=== PATIENT | male | born 1975 | race African-American/Black ===

== ENCOUNTER 2017-02-12 23:09 | Inpatient (IN) | payer OTHER ==
--- NOTE | ~2017-02-12 | PN ---
Unit #: [id number] #: [id number] Patient: FAROOQ PEGUERO [id number] [facility] [address] [place] [address] [id number] I MR#: [id number] NAME: FAROOQ PEGUERO. ROOM: P259 Age: 41 Sex: M Admission Date: 02/12/2017 : 1975 Attending Physician: Arley Rivera M.D. Admitting Physician: Arley Rivera M.D. Primary Care Physician: Generic Doctor Not In System [facility] PROGRESS NOTES DATE OF SERVICE: 02/15/2017 DISCUSSION Mr. Peguero complains of hunger with his ongoing detox pain. He also concerned about his blood pressure, although review of his recent blood pressures indicated that this is improving as well. He is somewhat entitled and staff reports he can be demanding at times. He is alert and fully oriented with no evidence of psychosis and suicidality. ASSESSMENT Opioid dependence. PLAN We are going to provide larger portion entrees and continue with the detox protocol. Anticipate discharge in the near future. Dictated by... Arley Rivera M.D. ROBERT/migdalia TD: 02/16/2017 03:31 JOB #: [id number] [facility] PROGRESS NOTES Page 1 of 1 X Arley Rivera MD PROGRESS NOTE
--- NOTE | ~2017-02-12 | DS ---
Unit #: [id number] #: [id number] Patient: FAROOQ PEGUERO [id number] [facility] [address] [place] [address] [id number] I MR#: [id number] NAME: FAROOQ PEGUERO. ROOM: P259 Age: 41 Sex: M Admission Date: 02/12/2017 : 1975 Discharge Date: 02/17/2017 Attending Physician: Arley Rivera M.D. Primary Care Physician: Generic Doctor Not In System DISCHARGE SUMMARY REASON FOR ADMISSION Farooq is a 41-year-old man, who has been using 20 to 30 dollars of heroin daily in nasal inhalation route. He had vague suicidal ideation and was admitted for stabilization. DIAGNOSTIC STUDIES LABORATORY RESULTS: Please see hospital chart. HOSPITAL COURSE The patient was admitted and placed on suicide precautions and the opioid detox protocol. He had several dermatological issues and this was addressed by our nurse practitioner. He had ongoing irritability and at one point requested discharge against medical advice, which he declined later on to accept. He participated in unit groups and activities and on the date of discharge, he was able to contract for safety in the outpatient setting. DISCHARGE DIAGNOSES AXIS I: Opioid dependence withdrawal, uncomplicated, F11.23. AXIS II: No diagnosis. AXIS III: Nasal infection. AXIS IV: AXIS V: DISCHARGE INSTRUCTIONS Follow up with [facility] and with primary care physician. DISCHARGE MEDICATIONS Cleocin 300 mg t.i.d. for 7 days for infection. CONDITION AT DISCHARGE Improved. PROGNOSIS Fair to good. DIET AND ACTIVITY Per primary care doctor. Dictated by... Arley Rivera M.D. Unit #: [id number] #: [id number] Patient: FAROOQ PEGUERO MR/modl TD: 02/24/2017 01:29 JOB #: [id number] DISCHARGE SUMMARY Page 1 of 1 X Arley Rivera MD X DISCHARGE SUMMARY
--- NOTE | ~2017-02-12 | PA ---
Unit #: [id number] #: [id number] Patient: FAROOQ PEGUERO [id number] [facility] [address] [place] [address] [id number] I MR#: [id number] NAME: FAROOQ PEGUERO. ROOM[facility] Age: 41 Sex: M Admission Date: 02/12/2017 : 1975 Date of Assessment: 02/13/2017 Attending Physician: Arley Rivera M.D. Admitting Physician: Arley Rivera M.D. Primary Care Physician: Generic Doctor Not In System PSYCHIATRIC ASSESSMENT DATE OF SERVICE 02/13/2017. INFORMANTS The patient, reliable and OLOP, reliable. CHIEF COMPLAINT Opioid dependence. HISTORY OF PRESENT ILLNESS Farooq Peguero is a 41-year-old man, who reports he has been using 20 to 30 dollars of heroin daily by the nasal inhalation route with occasional use of alprazolam. He had vague suicidal ideation with a plan to overdose on heroin and was admitted for inpatient detox. PAST PSYCHIATRIC HISTORY The patient denies any previous hospitalizations at this facility, but has been at [facility], [facility], and [facility] in the past. He does not take any psychiatric medications. FAMILY PSYCHIATRIC HISTORY There is a family history of depression. SOCIAL HISTORY The patient is homeless and is currently working at the [facility] [employer]. He is a high-school graduate with minimal psychosocial support at this time. PAST MEDICAL HISTORY The patient reports several dermatological sensitivities, for which he is receiving treatment for. MEDICATIONS Please see MAR. ALLERGIES The patient has no drug allergies. SUBSTANCE USE HISTORY As noted, the patient has a history of abusing heroin. MENTAL STATUS EXAMINATION The patient presented as a neatly dressed and groomed man, who appeared Unit #: [id number] #: [id number] Patient: FAROOQ PEGUERO his stated age. Vital signs were temperature 98.3, blood pressure 101/56, respirations 18, and pulse 82. His speech was spontaneous and clearly understood. Musculoskeletal examination was calm. His mood was mildly anxious with a congruent affect. He was alert and fully oriented. His memory and concentration were fair to good. His thought processes were goal directed with no active psychosis. He denied active suicidal ideation at the time of my assessment. Insight and judgment, fair. Fund of knowledge and abstraction, fair. ASSETS AND LIABILITIES The patient presents voluntarily and knows local resources. He currently is connected with [employer] [place] [employer]. Liabilities include ongoing heroin use. ADMITTING DIAGNOSES AXIS I: Opioid dependence with withdrawal, uncomplicated, F11.23. AXIS II: Some antisocial traits noted. AXIS III: Opioid withdrawal syndrome and dermatological sensitivities. AXIS IV: AXIS V: PSYCHIATRIC PLAN The patient was admitted and placed on suicide precautions and the opioid detox protocol. Nurse practitioner will be asked to address his dermatological issues and requests and we will initiate the detox protocol. TREATMENT GOALS Establishment of sobriety, improvement in insight, and improvement in coping skills. DISCHARGE PLANNING Follow up with [facility]. ESTIMATED LENGTH OF STAY 5 days. Dictated by... Arley Rivera M.D. ROBERT/migdalia TD: 02/13/2017 19:27 JOB #: [id number] PSYCHIATRIC ASSESSMENT X Arley Rivera MD X PSYCHIATRIC ASSESSMENT
--- NOTE | ~2017-02-12 | HP ---
Unit #: [id number] #: [id number] Patient: FAROOQ PEGUERO [id number] [place] [address] [id number] MR#: [id number] NAME: FAROOQ PEGUERO. ROOM: P261 Age: 41 Sex: M Admission Date: 02/12/2017 : 1975 Attending Physician: Arley Rivera M.D. Admitting Physician: Arley Rivera M.D. Primary Care Physician: Generic Doctor Not In System HISTORY AND PHYSICAL HISTORY OF PRESENT ILLNESS Farooq is a 41-year-old male admitted on 02/12/2017 to [facility] for detox from heroin. PAST MEDICAL HISTORY Hypertension and asthma. PAST SURGICAL HISTORY None. SOCIAL HISTORY Smokes one pack of cigarettes daily. No alcohol use. Does report daily use of heroin. He is currently single and living with his aunt. FAMILY HISTORY Noncontributory. REVIEW OF SYSTEMS CONSTITUTIONAL: No fever or chills. HEENT: Denies any sore throat, ear pain or runny nose. CARDIOVASCULAR: Denies chest pain, irregular heart rhythm or palpitations. CHEST: Denies shortness of breath or cough. No hemoptysis. GASTROINTESTINAL: Denies nausea, vomiting, diarrhea or chronic constipation. ENDOCRINE: Denies history of increased thirst or urination. No recent significant weight loss or gain. GENITOURINARY: Denies dysuria, frequency, or hematuria. SKIN: Denies any rashes. HEMATOLOGIC: Denies history of increased bleeding or bruising. MUSCULOSKELETAL: Denies any hot, swollen joints. No generalized muscle pain. NEUROLOGIC: Denies problems with vision or speech. No frequent, severe headaches. No numbness, tingling or weakness in any extremities. Denies loss of bladder or bowel control. CURRENT MEDICATIONS None. ALLERGIES No known drug allergies. PHYSICAL EXAMINATION GENERAL: Alert, oriented, in no acute distress. Unit #: [id number] #: [id number] Patient: FAROOQ PEGUERO VITAL SIGNS: Blood pressure 127/65, heart rate 89, temperature 99.3. HEIGHT: 5 foot 6 inches. WEIGHT: 160 pounds. SKIN: Warm and dry without rash or lesion. HEENT: Normocephalic. TMs not viewed. Oral and nasal passages clear. Conjunctivae clear. PERRLA. EOMs intact. NECK: Supple without lymphadenopathy or thyromegaly. HEART: Regular rate and rhythm without murmur. LUNGS: Clear. ABDOMEN: Soft, nontender, without masses or hepatosplenomegaly. : Not done. EXTREMITIES: No evidence of cyanosis, clubbing or edema. Moves all without focal deficit. NEUROLOGICAL: Grossly within normal limits. Cranial Nerves: II: Visual jefferson are intact. III, IV AND : Extraocular movements are intact. Pupils are equal, round and reactive to light. V: Facial sensation is grossly normal. VII: Facial movements and expression are normal. VIII: Auditory acuity grossly intact. IX, X: Uvula is midline. Phonation is normal. XI: Patient shrugs shoulders and turns head normally. XII: Tongue protrudes in the midline. Sensory and Motor Function: Sensory and motor sensation is grossly normal. Motor: moves all extremities well. Coordination: Gait is normal. Deep Tendon Reflexes: Intact. IMPRESSION 1. Psychiatric admission. 2. Hypertension. 3. Asthma. RECOMMENDATIONS Psychiatric, per psychiatrist. MEDICAL: I see no contraindications to participating in facility's activities. MEDICAL PROGNOSIS Good. MEDICAL CONDITION Stable. Dictated by... Mandie Quan TD: 02/14/2017 00:26 JOB #: [id number] Unit #: [id number] #: [id number] Patient: FAROOQ PEGUERO HISTORY AND PHYSICAL X MARKO HENRIQUEZ APRN X HISTORY AND PHYSICAL
--- NOTE | ~2017-02-12 | CO ---
Unit #: [id number] #: [id number] Patient: FAROOQ PEGUERO [id number] [place] [address] [id number] I MR#: [id number] NAME: FAROOQ PEGUERO. ROOM: P2 Age: 41 Sex: M Admission Date: 02/12/2017 : 1975 Attending Physician: Arley Rivera M.D. Primary Care Physician: Generic Doctor Not In System Consultation Date: 02/13/2017 CONSULTATION REPORT HISTORY OF PRESENT ILLNESS Farooq reports tingling with urination for the past several months. He has not noticed any blood or odor to his urine, but does have increased frequency symptoms. He feels the urge to urinate every hour. Other times, it is less frequently than that. He reports that he has had his urine checked in the past and has been told that he is dehydrated. He also has a large bump in his left nostril that occasionally does ooze a greenish colored drainage. He first noticed this about 2 weeks ago and has become painful, does not appear to be getting any bigger or smaller. He has no other complaints. PHYSICAL EXAMINATION CARDIAC: Regular rate and rhythm. No murmur, gallop, or rub. RESPIRATORY: Clear to auscultation bilaterally. ABDOMEN: Bowel sounds positive in all quadrants. No abdominal tenderness to palpation. No CVA tenderness or flank pain. SKIN: 0.5 cm cyst in left nostril with no redness. No tenderness with palpation. ASSESSMENT AND PLAN 1. Tingling with urination. We will obtain UA as well as sample for gonorrhea and chlamydia. The patient was encouraged to increase p.o. hydration. 2. Cyst in left nostril. Please obtain culture and sensitivity and begin bacitracin ointment 1% b.i.d. for 10 days. Please notify if symptoms are unresolved or if culture and sensitivity comes back abnormal. Dictated by... Mary Beth Juarez A.P.R.N. for Marilu Newman/migdalia TD: 02/13/2017 18:00 JOB #: [id number] Unit #: [id number] #: [id number] Patient: FAROOQ PEGUERO CONSULTATION REPORT X MARY BETH HENRIQUEZ APRN CONSULTATION REPORT
--- NOTE | ~2017-02-12 | PN ---
Unit #: [id number] #: [id number] Patient: FAROOQ PEGUERO [id number] [facility] [address] [place] [address] [id number] I MR#: [id number] NAME: FAROOQ PEGUERO. ROOM: P261 Age: 41 Sex: M Admission Date: 02/12/2017 : 1975 Attending Physician: Arley Rivera M.D. Admitting Physician: Arley Rivera M.D. Primary Care Physician: Generic Doctor Not In System [facility] PROGRESS NOTES DATE 02/14/2017 DISCUSSION Farooq is somewhat irritable and entitled today. He has mild to moderate detox symptoms. We were unfortunately unable to allow him to use all of his self-care products, which prompted an initial request for AMA discharge last night which he later rescinded. He is alert and fully oriented with no psychosis and no suicidal ideation. ASSESSMENT Opiate dependence. PLAN Continue current treatment plan. Dictated by... Arley Rivera M.D. ROBERT/jasbir TD: 02/15/2017 22:08 JOB #: [id number] [facility] PROGRESS NOTES Page 1 of 1 X Arley Rivera MD PROGRESS NOTE
--- NOTE | ~2017-02-12 | PN ---
Unit #: [id number] #: [id number] Patient: FAROOQ EPGUERO [id number] [facility] [address] [place] [address] [id number] I MR#: [id number] NAME: FAROOQ PEGUERO. ROOM: P259 Age: 41 Sex: M Admission Date: 02/12/2017 : 1975 Attending Physician: Arley Rivera M.D. Admitting Physician: Arley Rivera M.D. Primary Care Physician: Generic Doctor Not In System [facility] PROGRESS NOTES DATE OF SERVICE: 02/16/2017 DISCUSSION Farooq continues to have some irritability, but he is minimal in detox score today. He has been started on Cipro due to an infection by our internist medical doctor md. He is alert and fully oriented. Memory and concentration are intact. His thought processes are logical with no psychosis. ASSESSMENT Opioid dependence. PLAN Continue current medications, anticipating discharge soon. Dictated by... Marilu GuzmanH/migdalia TD: 02/24/2017 02:38 JOB #: [id number] [facility] PROGRESS NOTES Page 1 of 1 X Arley Rivera MD PROGRESS NOTE
[2017-02-13 11:37] LABS: ALBUMIN SERUM 3.9 g/dL (3.5-5.0); ALKALINE PHOSPHATASE 47 U/L (32-92); ALT (SGPT) 79 U/L (10-40); AST (SGOT) 41 U/L (10-42); BILIRUBIN,TOTAL 0.7 mg/dL (0.2-2.0); BLOOD UREA NITROGEN 15 mg/dL (9-23); CALCIUM SERUM 9.4 mg/dL (8.4-10.2); CARBON DIOXIDE 29 mmol/L (22-31); CHLORIDE 104 mmol/L (100-111); CREATININE SERUM 1.2 mg/dL (0.6-1.4); GLOM FILT RATE Estimated ABOVE60 mL/min (>60); GLUCOSE FASTING 91 mg/dL (70-110); POTASSIUM 4.1 mmol/L (3.5-5.1); PROTEIN TOTAL SERUM 6.5 g/dL (6.0-8.3); SODIUM 139 mmol/L (135-145)
[2017-02-13 12:53] LABS: BASOPHIL# 0.1 X10e3 (0-0.3); BASOPHIL% 0.6 % (0-2.5); EOSINOPHIL# 0.1 X10e3 (0-0.7); HEMATOCRIT 35.2 % (38.0-50.0); HEMOGLOBIN 11.4 gm/dL (13.0-16.0); LYMPHOCYTE# 3.3 X10e3 (1.0-3.5); MEAN CELL VOLUME 87.5 FL (83-96); MEAN CORPUSCULAR HEMOGLOBIN 28.4 PG (28-34); MEAN CORPUSCULAR HGB CONC 32.5 g/dL (30-36); MEAN PLATELET VOLUME 7.8 FL (6.5-11.5); MONOCYTE# 0.6 X10e3 (0-1.0); MONOCYTE% 6.3 % (3.0-12.0); NEUTROPHIL# 5.2 X10e3 (1.5-7.1); NEUTROPHIL% 56.1 % (40-75); PLATELET COUNT 257 X10e3 (140-420); RED BLOOD COUNT 4.02 X10e (3.90-5.60); WHITE BLOOD COUNT 9.2 X10e3 (4.0-10.5)
[2017-02-13 12:57] LABS: DIFF IND NO
[2017-02-14 09:41] LABS: URINE APPEARANCE CLEAR; URINE BILIRUBIN NEG (NEG); URINE BLOOD NEG (NEG); URINE COLOR YELLOW; URINE GLUCOSE NEG (NEG); URINE KETONE NEG (NEG); URINE LEUKOCYTE ESTERASE NEG (NEG); URINE NITRATE NEG (NEG); URINE PH 5.5 (5-8); URINE PROTEIN NEG (NEG); URINE SPECIFIC GRAVITY 1.018 (1.003-1.035); URINE UROBILINOGEN 0.2 MG/DL (NEG)
[2017-02-14 10:08] LABS: AMPHETAMINE NEG (NEG); BARBITURATES NEG (NEG); BENZODIAZEPINES NEG (NEG); COCAINE NEG (NEG); MARIJUANA NEG (NEG); OPIATES POS (NEG); TRICYCLIC ANTIDEPRESSANTS NEG (NEG); U METHADONE NEG (NEG)
[2017-02-17 10:57] LABS: CHLAMYDIA TRACH Not Detected (Not Detected); N GONOR Not Detected (Not Detected)
== END 2017-02-17 15:00 | disposition home or self-care (01) | DRG 897 ==
LOC: P2L 23:09 → POF 02-13 15:46 → P2L 02-13 15:48
PROVIDERS: Psychiatry & Neurology Psychiatry
PROC: HZ2ZZZZ Detoxification Services for Substance Abuse Treatment (ICD-10-PCS; principal; 2017-02-12)
DX: F11.23 Opioid dependence with withdrawal (principal); R45.851 Suicidal ideations; Z72.811 Adult antisocial behavior; Z81.8 Family history of other mental and behavioral disorders; J45.909 Unspecified asthma, uncomplicated; I10 Essential (primary) hypertension; F17.210 Nicotine dependence, cigarettes, uncomplicated; R20.2 Paresthesia of skin; R39.198 Other difficulties with micturition; J34.1 Cyst and mucocele of nose and nasal sinus
CPT/HCPCS: 80053; 80307; 81003; 85025; 86592; 87070; 87077; 87186; 87205; 87491; 87591

== ENCOUNTER 2017-04-09 11:00 | Inpatient (IN) | payer OTHER ==
--- NOTE | ~2017-04-09 | HP ---
Unit #: [id number] #: [id number] Patient: FAROOQ PEGUERO [id number] [place] [address] [id number] I MR#: [id number] NAME: FAROOQ PEGUERO. ROOM: P212 Age: 41 Sex: M Admission Date: 04/09/2017 : 1975 Attending Physician: Arley Rivera M.D. Admitting Physician: Arley Rivera M.D. Primary Care Physician: Generic Doctor Not In System HISTORY AND PHYSICAL HISTORY OF PRESENT ILLNESS The patient is a 41-year-old male, who states that he is here for detox from heroin. PAST MEDICAL HISTORY Significant for hypertension. PAST SURGICAL HISTORY None. ALLERGIES None. SOCIAL HISTORY Positive for smoking and heroin. FAMILY HISTORY Noncontributory. REVIEW OF SYSTEMS CONSTITUTIONAL: No fever or chills. HEENT: Denies any sore throat, ear pain or runny nose. CARDIOVASCULAR: Denies chest pain, irregular heart rhythm or palpitations. CHEST: Denies shortness of breath or cough. No hemoptysis. GASTROINTESTINAL: Denies nausea, vomiting, diarrhea or chronic constipation. ENDOCRINE: Denies history of increased thirst or urination. No recent significant weight loss or gain. GENITOURINARY: Denies dysuria, frequency, or hematuria. SKIN: Denies any rashes. HEMATOLOGIC: Denies history of increased bleeding or bruising. MUSCULOSKELETAL: Denies any hot, swollen joints. No generalized muscle pain. NEUROLOGIC: Denies problems with vision or speech. No frequent, severe headaches. No numbness, tingling or weakness in any extremities. Denies loss of bladder or bowel control. CURRENT MEDICATIONS None. PHYSICAL EXAMINATION GENERAL: Alert, oriented, and in no acute distress. VITAL SIGNS: Temperature 98.5, heart rate 71, respirations 16, and blood Unit #: [id number] #: [id number] Patient: FAROOQ PEGUERO pressure 132/95. HEIGHT: 5 feet 7 inches. WEIGHT: 165 pounds. SKIN: Warm and dry without rash or lesion. Multiple tattoos bilateral upper chest, bilateral upper arms, bilateral thighs, bilateral lower extremities, and multiple tattoos on upper and mid back. HEENT: Normocephalic. TMs not viewed. Oral and nasal passages clear. Conjunctivae clear. PERRLA. EOMs intact. NECK: Supple without lymphadenopathy or thyromegaly. HEART: Regular rate and rhythm without murmur. LUNGS: Clear. ABDOMEN: Soft, nontender. : Not done. EXTREMITIES: No evidence of cyanosis, clubbing or edema. Moves all without focal deficit. NEUROLOGICAL: Grossly within normal limits. Cranial Nerves: II: Visual jfeferson are intact. III, IV AND : Extraocular movements are intact. Pupils are equal, round and reactive to light. V: Facial sensation is grossly normal. VII: Facial movements and expression are normal. VIII: Auditory acuity grossly intact. IX, X: Uvula is midline. Phonation is normal. XI: Patient shrugs shoulders and turns head normally. XII: Tongue protrudes in the midline. Sensory and Motor Function: Sensory and motor sensation is grossly normal. Motor: moves all extremities well. Coordination: Gait is normal. Deep Tendon Reflexes: Intact. IMPRESSION Psychiatric admission. RECOMMENDATIONS Psychiatric, per psychiatrist. MEDICAL I see no contraindications to participating in facility's activities. MEDICAL PROGNOSIS Good. Dictated by... Mandie Cruz/jerson TD: 04/11/2017 08:42 JOB #: [id number] Unit #: [id number] #: [id number] Patient: AFROOQ PEGUERO HISTORY AND PHYSICAL Page 1 of X Savannah Perrin APR X HISTORY AND PHYSICAL
--- NOTE | ~2017-04-09 | PN ---
Unit #: [id number] #: [id number] Patient: FAROOQ PEGUERO [id number] [facility] [address] [place] [address] [id number] I MR#: [id number] NAME: FAROOQ PEGUERO. ROOM: P212 Age: 41 Sex: M Admission Date: 04/09/2017 : 1975 Attending Physician: Arley Rivera M.D. Admitting Physician: Arley Rivera M.D. Primary Care Physician: Generic Doctor Not In System [facility] PROGRESS NOTES DATE 04/12/2017 DISCUSSION Mr. Peguero continues to have withdrawal symptoms although they are improved today. His mood remains irritable with a congruent affect. He is alert and fully oriented with no evidence of psychosis but no suicidal ideation today. ASSESSMENT 1. Opiate dependence. 2. Major depression. PLAN Continue current detox and anticipate discharge in the near future. Dictated by... Arley Rivera M.D. MRH/bzg TD: 04/13/2017 06:49 JOB #: [id number] [facility] PROGRESS NOTES Page 1 of 1 X Arley Rivera MD X PROGRESS NOTE
--- NOTE | ~2017-04-09 | PA ---
Unit #: [id number] #: [id number] Patient: FAROOQ PEGUERO [id number] [facility] [address] [place] [address] [id number] I MR#: [id number] NAME: FAROOQ PEGUERO. ROOM: P212 Age: 41 Sex: M Admission Date: 04/09/2017 : 1975 Date of Assessment: Attending Physician: Arley Rivera M.D. Admitting Physician: Arley Rivera M.D. Primary Care Physician: Generic Doctor Not In System PSYCHIATRIC ASSESSMENT DATE OF ASSESSMENT 04/10/2017. INFORMANTS The patient, reliable; OLOP, reliable. CHIEF COMPLAINT Opioid dependence. HISTORY OF PRESENT ILLNESS Mr. Peguero is a 41-year-old man who was recently at this facility for heroin abuse and depression. He had further suicidal ideation with a plan to overdose on heroin. He could not contract for safety and was admitted for stabilization. PAST PSYCHIATRIC HISTORY This is Tamika's second admission to this facility this year. He has been at [facility], [facility], and [facility] in the past. FAMILY PSYCHIATRIC HISTORY There is a family history of depression. SOCIAL HISTORY The patient is homeless and is currently residing at [facility] and is in their work program. He is a high school graduate with no psychosocial support in the city. PAST MEDICAL HISTORY The patient reports dermatological sensitivities. MEDICATIONS None currently. ALLERGIES No known medication allergies. SUBSTANCE ABUSE HISTORY The patient has a history of abusing heroin and has been treated for this at multiple facilities. MENTAL STATUS EXAMINATION The patient presented as a neatly dressed and groomed man, who appeared Unit #: [id number] #: [id number] Patient: FAROOQ PEGUERO his stated age. He was compliant with the examination. His speech was soft, sparse, but easily understood. Musculoskeletal examination was calm. His mood was irritable with a congruent affect. He was alert and fully oriented. His memory and concentration were intact. His thought processes were logical with no active psychosis. He had vague suicidal ideation and would not contract for safety outside of the hospital. Insight and judgment, fair. Fund of knowledge and abstraction, fair to good. ASSETS AND LIABILITIES The patient knows local resources and presents voluntarily for treatment. Liabilities include recent relapse. ADMITTING DIAGNOSES AXIS I: Opioid dependence with withdrawal, uncomplicated, F11.23. AXIS II: No diagnosis. AXIS III: History of hypertension, history of dermatological sensitivities. AXIS IV: AXIS V: PSYCHIATRIC PLAN The patient was admitted and placed on suicide precautions and the opioid detox protocol. Trazodone will be provided for insomnia and Dove soap will be provided for skin sensitivities. He will enroll in psychotherapy groups and activities with dual diagnosis focus. TREATMENT GOALS Resolution of intoxication, resolution of SI, improvement in insight, and improvement in coping skills. DISCHARGE PLANNING Follow up with [facility]. ESTIMATED LENGTH OF STAY 5 days. Dictated by... Arley Rivera M.D. ROBERT/migdalia TD: 04/13/2017 04:39 JOB #: [id number] PSYCHIATRIC ASSESSMENT Page 1 of 1 X Arley Rivera MD X PSYCHIATRIC ASSESSMENT
--- NOTE | ~2017-04-09 | DS ---
Unit #: [id number] #: [id number] Patient: FAROOQ PEGUERO [id number] [facility] [address] [place] [address] [id number] MR#: [id number] NAME: FAROOQ PEGUERO. ROOM: P212 Age: 41 Sex: M Admission Date: 04/09/2017 : 1975 Discharge Date: 04/13/2017 Attending Physician: Arley Rivera M.D. Primary Care Physician: Generic Doctor Not In System DISCHARGE SUMMARY REASON FOR ADMISSION Mr. Peguero is a 41-year-old man with a previous admission to this facility. He relapsed on heroin after his last discharge. He was unable to contract for safety with a vague suicide plan and was readmitted. DIAGNOSTIC STUDIES LABORATORY DATA, please see hospital chart. RPR was nonreactive. HOSPITAL COURSE Patient was admitted and placed on the opiate detox protocol. Trazodone was provided for insomnia which the patient reported was marginally effective. However he tended to stay in bed for much of the day and attended a few groups and activities. He had no further suicidal ideation, intent or plan throughout the hospitalization and on the date of discharge contract for safety. DISCHARGE DIAGNOSIS AXIS I: Opiate dependence withdrawal, uncomplicated. AXIS II: No diagnosis. AXIS III: Hypertension. Dermatology sensitivity INSTRUCTIONS TO PATIENT Followup with [facility] and [facility] ____ [facility]. DISCHARGE MEDICATIONS None were provided. CONDITION ON DISCHARGE Fair. PROGNOSIS Fair. DIET AND ACTIVITY Ad brad Dictated by... Arley Rivera M.D. Unit #: [id number] #: [id number] Patient: FAROOQ PEGUERO [facility]/sudhakar TD: 04/13/2017 23:12 JOB #: [id number] DISCHARGE SUMMARY Page 1 of 1 X Arley Rivera MD X DISCHARGE SUMMARY
[2017-04-10 13:23] LABS: ALBUMIN SERUM 4.2 g/dL (3.5-5.0); BUN/CREATININE RATIO 17.27; CALCIUM SERUM 9.6 mg/dL (8.4-10.2); CREATININE SERUM 1.1 mg/dL (0.6-1.4); GLOM FILT RATE Estimated 97.5 mL/min (>60); POTASSIUM 4.6 mmol/L (3.5-5.1); PROTEIN TOTAL SERUM 7.2 g/dL (6.0-8.3)
== END 2017-04-13 14:25 | disposition home or self-care (01) | DRG 897 ==
LOC: P2S 14:23
PROVIDERS: Psychiatry & Neurology Psychiatry
PROC: HZ2ZZZZ Detoxification Services for Substance Abuse Treatment (ICD-10-PCS; principal; 2017-04-09)
DX: F11.23 Opioid dependence with withdrawal (principal); I10 Essential (primary) hypertension; F17.210 Nicotine dependence, cigarettes, uncomplicated
CPT/HCPCS: 80053; 86592